=== PATIENT | male | born 1985 | race Caucasian/White ===

== ENCOUNTER 2016-08-02 17:40 | Emergency (ER) | payer BC ==
[~2016-08-02] VITALS: Ht 177.8 cm; Wt 115.0 kg
[2016-08-02 18:45] LABS: HEMATOCRIT 46.8 % (38.0-50.0); MCH 28.6 PG (29.0-34.0); MCV 81.7 FL (86-99); MEAN PLAT.VOLUME 11.2 uM^3 (9.0-12.4); PLATELET COUNT 207 K/uL (156-360); RBC DIS.WIDTH-CV 13.5 % (11.8-14.6); RBC DIS.WIDTH-SD 39.3 % (39-53); RED BLOOD COUNT 5.73 M/uL (4.00-5.50)
[2016-08-02 18:58] LABS: CHLORIDE 103 mEq/L (99-109); POTASSIUM 3.8 mEq/L (3.7-5.4); SODIUM 142 mEq/L (136-147)
[2016-08-02 19:01] LABS: GLUCOSE 105 mg/dL (70-99)
[2016-08-02 19:02] LABS: ANION GAP 14 MEQ/L (2-14)
[2016-08-02 19:03] LABS: TOTAL BILIRUBIN 1.2 mg/dL (0.0-1.0)
[2016-08-02 19:04] LABS: ALKALINE PHOSPHATASE 60 IU/L (3-129)
[2016-08-02 19:06] LABS: UREA NITROGEN (BUN) 20 mg/dL (9-23)
[2016-08-02 19:07] LABS: GFR ESTIMATE (CALCULATED) > 59 mL/min/
[2016-08-02] MEDS ORDERED: PROMETHAZINE HC25 M1 PO (20:22)
[2016-08-02 20:28] LABS: LIPASE 27 U/L (1.0-51.0)
[2016-08-02 21:26] LABS: ADD MIUA? YES; BILIRUBIN NEGATIVE; BLOOD NEGATIVE; COLOR YELLOW ((YELLOW)); GLUCOSE (STRIP) NEGATIVE; KETONES NEGATIVE; LEUKOCYTES NEGATIVE; NITRITE NEGATIVE; PROTEIN (STRIP) 30; SPECIFIC GRAVITY 1.033 (1.000-1.030); UROBILINOGEN 0.2 MG/DL (0.2-1.0)
[2016-08-02 21:37] VITALS: BP 125/73
[2016-08-02 21:55] LABS: EPITHELIAL CELLS NONE SEEN /HPF; MUCUS 4+ /LPF; RED BLOOD CELLS 0-5 /HPF (0-5); WHITE BLOOD CELLS 0-5 /HPF (0-5)
[2016-08-02 21:57] LABS: BACTERIA RARE /HPF; UCUL ADDED? NO
== END 2016-08-02 21:37 | disposition home or self-care (01) ==
LOC: EME 17:40
DX: R11.2 Nausea with vomiting, unspecified (principal)
CPT/HCPCS: 80053; 81003; 83690; 85027; 99281; 99284; J2550